=== PATIENT | male | born 1960 | race Caucasian/White ===

== ENCOUNTER 2017-06-30 19:59 | Emergency (ER) | payer SELFPAY ==
[~2017-06-30] VITALS: Ht 172.7 cm; Wt 74.0 kg
[~2017-06-30 19:59] MED LIST: AZIT250T9 PO; CYCL10 PO; IBUP-1506 PO
[2017-06-30] MEDS ORDERED: FAMO20 PO (20:13)
[2017-06-30] MEDS ORDERED: BARIUM SULFATE 0.1% SUSPENSION 450 ML BOTTLE PO ONE (23:00)
[2017-06-30 23:01] LABS: BASOPHILS % (AUTO) 0.6 % (0.0-2.0); EOSINOPHILS % (AUTO) 1.4 % (1.0-6.0); HEMOGLOBIN 15.3 g/dL (13.5-17.5); LYMPHOCYTES % (AUTO) 33.7 % (22.0-44.0); MEAN CORPUSCULAR HEMOGLOBIN 30.6 pg (26.0-34.0); MEAN CORPUSCULAR HGB CONC 34.8 G/dL (31.0-37.0); MEAN CORPUSCULAR VOLUME 88 fL (80-100); MONOCYTES # (AUTO) 0.6 K/uL (0.1-1.0); MONOCYTES % (AUTO) 9.8 % (2.0-9.0); NEUTROPHILS # (AUTO) 3.2 K/uL (1.8-7.7); NEUTROPHILS % (AUTO) 54.5 % (40.0-70.0); PLATELET COUNT (AUTO) 141 K/uL (150-450); RED BLOOD CELL COUNT(AUTO) 5.01 MIL/uL (4.50-5.90); RED CELL DISTRIBUTION WIDTH 13.3 % (11.5-14.5)
[2017-06-30 23:09] LABS: ANION GAP 3 mmol/L (8-16); CARBON DIOXIDE 32 mmol/L (22-29); CHLORIDE 108 mmol/L (98-107); CREATININE 0.87 mg/dL (0.60-1.30); GLOMERULAR FILTR. RATE CALC > 60 mL/min (>60); GLUCOSE,RANDOM 96 mg/dL (70-110); POTASSIUM 5.4 mmol/L (3.5-5.1); SODIUM SERUM 143 mmol/L (136-145); UREA NITROGEN, BLOOD 12 mg/dL (7-18)
[2017-06-30 23:11] LABS: PROTHROMBIN TIME 10.3 SEC (9.4-11.6)
[2017-06-30 23:14] LABS: ALANINE AMINOTRANSFERASE 36 U/L (12-78); ALKALINE PHOSPHATASE 47 U/L (46-116); AMYLASE 67 U/L (25-115); ASPARTATE AMINOTRANSFERASE 19 U/L (15-37); BILIRUBIN,TOTAL 0.3 mg/dL (0.1-1.0); LIPASE 272 U/L (73-393); TOTAL PROTEIN, SERUM 7.1 g/dL (6.4-8.2)
[2017-06-30 23:15] LABS: APPEARANCE,URINE CLEAR (CLEAR); BILIRUBIN,URINE NEGATIVE (NEGATIVE); GLUCOSE, URINE (UA) NEGATIVE (NEGATIVE); KETONES,URINE NEGATIVE (NEGATIVE); LEUKOCYTE ESTERASE ,URINE NEGATIVE (NEGATIVE); NITRATE,URINE NEGATIVE (NEGATIVE); OCCULT BLOOD,URINE NEGATIVE (NEGATIVE); PH,URINE 6.5 (5.0-8.0); PROTEIN,URINE NEGATIVE (NEGATIVE); UROBILINOGEN,URINE 0.2 mg/dL (<=1.0)
[2017-07-01] MEDS ORDERED: IOVERSOL 350 MG/ML 100 ML VIAL ONE (00:31)
[2017-07-01] MEDS ORDERED: SODIUM CHLORIDE 0.9% 100 ML ONE (00:31)
[2017-07-01 03:13] VITALS: BP 136/74
== END 2017-07-01 04:17 | disposition home or self-care (01) ==
LOC: EDUNIT# 19:59 → EMS 19:59
DX: R10.12 Left upper quadrant pain (principal); R00.1 Bradycardia, unspecified
CPT/HCPCS: 36415; 71045; 74177; 80053; 81003; 82150; 83690; 84484; 85025; 85610; 93005; 99285; J7050; Q9967; Z7610

== ENCOUNTER 2024-11-23 09:44 | Emergency (ER) | payer MEDICAID ==
[~2024-11-23] VITALS: Ht 170.2 cm; Wt 78.0 kg
[~2024-11-23 09:44] MED LIST changes: -AZIT250T9 PO; -CYCL10 PO; +FAMO20 PO; -IBUP-1506 PO
[2024-11-23 09:45] VITALS: TEMP 98.2
[2024-11-23 10:08] LABS: COVID AG,FIA SOURCE NASAL SWAB
[2024-11-23 10:49] LABS: SARS-COV2 (COVID) ANTIGEN,FIA Negative (Negative)
[2024-11-23 10:50] LABS: INFLUENZA TYPE A NEGATIVE FOR TYPE A (NEGATIVE); INFLUENZA TYPE B NEGATIVE FOR TYPE B (NEGATIVE)
[2024-11-23] MEDS ORDERED: GUAIFDM PO (11:06)
[2024-11-23] MEDS ORDERED: ACET-66 PO (11:06)
[2024-11-23] MEDS: ACETAMINOPHEN 500 MG TABLET PO ONE (11:09)
[2024-11-23] MEDS: GuaiFENesin/D-METHORPHAN [SUGAR-FREE] 200-20MG/10 ML SYRUP UDCUP PO ONE (11:09)
[2024-11-23 11:12] VITALS: BP 127/77; PULSE 59; RESP 16; O2SAT 97
== END 2024-11-23 11:27 | disposition home or self-care (01) ==
LOC: EMS 09:44
DX: J06.9 Acute upper respiratory infection, unspecified (principal); R05.9 Cough, unspecified; Z79.899 Other long term (current) drug therapy; Z20.822 Contact with and (suspected) exposure to COVID-19
CPT/HCPCS: 87804; 99283